=== PATIENT | male | born 1955 | race Native Hawaiian/Other Pacific Islander ===

== ENCOUNTER 2019-05-07 10:57 | Outpatient (CLI) | payer OTHER, MEDICARE ==
[2019-05-07 11:35] LABS: PLATELET COUNT 196 K/uL (142-355)
[2019-05-07 13:40] LABS: POTASSIUM 4.5 mmol/L (3.6-5.2)
== END 2019-05-07 22:55 | disposition home or self-care (01) ==
LOC: LABW 10:57
PROVIDERS: Internal Medicine
DX: E11.9 Type 2 diabetes mellitus without complications (principal); N40.0 Benign prostatic hyperplasia without lower urinary tract symptoms
CPT/HCPCS: 80053; 80061; 81000; 82043; 82570; 83036; 84153; 84439; 84443; 85027

== ENCOUNTER 2019-05-10 10:00 | Outpatient (CLI) | payer OTHER, MEDICARE | END 2019-05-10 22:16 | disposition home or self-care (01) | LOC: LABW 10:00 | DX: L40.0 Psoriasis vulgaris (principal); L40.59 Other psoriatic arthropathy; Z79.899 Other long term (current) drug therapy; R53.82 Chronic fatigue, unspecified | CPT/HCPCS: 36415; 85651; 86140; 86480; 86704; 86706; 87350; 87522; 87535; G0432 ==

== ENCOUNTER 2019-05-23 12:29 | Outpatient (CLI) | payer OTHER, MEDICARE | END 2019-05-23 20:07 | disposition home or self-care (01) | LOC: RAD 12:29 | DX: Z79.899 Other long term (current) drug therapy (principal) ==

== ENCOUNTER 2019-06-27 12:16 | Outpatient (CLI) | payer OTHER, MEDICARE ==
[2019-06-27 13:09] LABS: POTASSIUM 4.3 mmol/L (3.6-5.2)
== END 2019-06-27 23:31 | disposition home or self-care (01) ==
LOC: LABW 12:16
PROVIDERS: Physician Assistant
DX: E11.9 Type 2 diabetes mellitus without complications (principal)
CPT/HCPCS: 36415; 80053; 83036

== ENCOUNTER 2019-09-25 10:42 | Outpatient (CLI) | payer OTHER, MEDICARE ==
[2019-09-25 11:12] LABS: POTASSIUM 4.3 mmol/L (3.6-5.2)
== END 2019-09-25 21:10 | disposition home or self-care (01) ==
LOC: LABW 10:42
PROVIDERS: Physician Assistant
DX: E11.9 Type 2 diabetes mellitus without complications (principal)
CPT/HCPCS: 36415; 80053

== ENCOUNTER 2020-01-30 09:26 | Outpatient (CLI) | payer OTHER, MEDICARE ==
[2020-01-30 10:04] LABS: PLATELET COUNT 198 K/uL (142-355)
[2020-01-30 10:10] LABS: POTASSIUM 4.5 mmol/L (3.6-5.2)
== END 2020-01-30 18:57 | disposition home or self-care (01) ==
LOC: LABW 09:26
PROVIDERS: Internal Medicine
DX: E11.9 Type 2 diabetes mellitus without complications (principal); I10 Essential (primary) hypertension; F32.9 Major depressive disorder, single episode, unspecified; N40.0 Benign prostatic hyperplasia without lower urinary tract symptoms
CPT/HCPCS: 36415; 80053; 80061; 81000; 82043; 82570; 83036; 84153; 84439; 84443; 85027

== ENCOUNTER 2021-01-07 08:52 | Outpatient (CLI) | payer OTHER, MEDICARE ==
[2021-01-07 09:11] LABS: PLATELET COUNT 192 K/uL (142-355)
[2021-01-07 09:35] LABS: POTASSIUM 4.2 mmol/L (3.6-5.2)
== END 2021-01-07 20:24 | disposition home or self-care (01) ==
LOC: LABW 08:52
PROVIDERS: ATTEND Internal Medicine
DX: F32.9 Major depressive disorder, single episode, unspecified (principal); E11.9 Type 2 diabetes mellitus without complications; N40.0 Benign prostatic hyperplasia without lower urinary tract symptoms
CPT/HCPCS: 36415; 80053; 80061; 81000; 82043; 83036; 84153; 84439; 84443; 85027

== ENCOUNTER 2021-09-21 10:46 | Outpatient (CLI) | payer OTHER, MEDICARE ==
[2021-09-21 14:21] LABS: PLATELET COUNT 200 K/uL (142-355)
[2021-09-21 14:38] LABS: POTASSIUM 4.3 mmol/L (3.6-5.2)
== END 2021-09-21 18:53 | disposition home or self-care (01) ==
LOC: LABW 10:46
PROVIDERS: ATTEND Internal Medicine
DX: E11.9 Type 2 diabetes mellitus without complications (principal); E78.00 Pure hypercholesterolemia, unspecified; I10 Essential (primary) hypertension
CPT/HCPCS: 36415; 80053; 80061; 81000; 82043; 83036; 84439; 84443; 85027

== ENCOUNTER 2023-01-03 15:11 | Outpatient (CLI) | payer OTHER, MEDICARE ==
[2023-01-03 15:36] LABS: PLATELET COUNT 191 K/uL (142-355)
[2023-01-03 15:53] LABS: POTASSIUM 4.3 mmol/L (3.6-5.2)
== END 2023-01-03 19:28 ==
LOC: LAB 15:11
PROVIDERS: ATTEND Internal Medicine
DX: E11.9 Type 2 diabetes mellitus without complications (principal)
CPT/HCPCS: 80053; 80061; 81002; 83036; 84439; 84443; 85027